=== PATIENT | male | born 1960 | race African-American/Black ===

== ENCOUNTER 2017-01-31 09:17 | Outpatient (CLI) | payer OTHER ==
--- NOTE | 2017-01-31 12:38 | MRI ---
LUMBAR SPINE MRI WITHOUT CONTRAST: HISTORY: Low back pain. The pain extends to the right leg and left knee for several years. COMPARISON: None. TECHNIQUE: A lumbar spine MRI is performed without intravenous Gadolinium administration. Multisequential, mult iplanar imaging is performed. FINDINGS: Heterogeneous marrow signal intensity of the lumbar vertebrae, likely due to senescent change. There are type 2 modic changes, as well as fatty marrow at L4 and L5 and at the superior endplate of S1. There is no significant STIR hyperintensity to suggest edema due to fracture. There is no evidence o f ligamentous injury. Symmetric signal intensity of the psoas muscles. Appropriate signal intensity of the visualized sally d organs. The conus medullaris terminates at the mid T12 level. T12-L1: Adequate disk hydration. No significant central canal stenosis. The foramina are patent. L1-L2: Adequate disk hydration. No significant central canal stenosis. The foramina are patent. L2-L3: Disk desiccation with mild loss of disk space height. Mild ligamentum flavum thickening and left facet hypertrophy is present. Mild central canal stenosis. Mild bilateral neural foraminal sheree rowing. L3-L4: Disk desiccation with mild loss of disk space height. No significant posterior disk abnormal ity. No significant central canal stenosis. Mild to moderate right and moderate left foraminal narr owing. L4-L5: There is a generalized disk bulge. There is severe loss of disk space height. There is disk material in the right and, to a lesser extent, the left subarticular zones. There is mild central c anal stenosis. There appears to be an extruded disk fragment in the right subarticular zone, measuri ng 0.7 cm. Disk material abuts and obscures the traversing right L5 nerve root. Disk material abuts but does not completely obscure the traversing left L5 nerve root. Moderate bilateral foraminal narr owing. L5-S1: Desiccation with severe loss of disk space height. Generalized disk bulge. No high grade ce ntral canal stenosis. Minimal encroachment upon both subarticular zones. Mass effect without ossifi cation of the bilateral traversing S1 nerve roots. Moderate to severe bilateral foraminal narrowing. IMPRESSION: Degenerative disk disease at L4-L5 and at L5-S1. There is a broad-based disk bulge at L4-L5 with dis k material in both subarticular zones, right greater than left. There is evidence of an extruded dis k in the right subarticular zone, which obscures the traversing right L5 nerve root. POS: [facility]
== END 2017-01-31 09:18 | disposition home or self-care (01) ==
LOC: TBSIIMAG 09:17
PROVIDERS: ATTEND Neurological Surgery
DX: M54.5 Low back pain (principal); M51.86 Other intervertebral disc disorders, lumbar region
CPT/HCPCS: 72148

== ENCOUNTER 2017-03-02 07:04 | Outpatient (CLI) | payer OTHER ==
--- NOTE | 2017-03-02 08:02 | ULT ---
ABDOMINAL ULTRASOUND: DATE: 03/02/17. PROVIDED CLINICAL HISTORY: Cirrhosis. FINDINGS: He visualized abdominal aorta, IVC, and pancreas appear normal. The liver demonstrates no mass or in trahepatic biliary ductal dilatation. The common duct is not evaluated. Gallbladder demonstrates no stones, wall thickening, or pericholecystic fluid. The kidneys demonstrate no hydronephrosis or mas s. The spleen is not enlarged and demonstrates no focal abnormality. IMPRESSION: Unremarkable abdominal ultrasound. POS: [facility]
== END 2017-03-02 07:05 | disposition home or self-care (01) ==
LOC: ULT 07:04
PROVIDERS: ATTEND Family Medicine
DX: K74.60 Unspecified cirrhosis of liver (principal)
CPT/HCPCS: 76700

== ENCOUNTER 2018-01-16 09:41 | Outpatient (CLI) | payer OTHER ==
--- NOTE | 2018-01-16 15:53 | RAD ---
DOUBLE CONTRAST BARIUM ESOPHAGRAM: 01/16/18 INDICATION: Dysphagia. FLUOROSCOPIC TIME: 0.7 minutes. TOTAL EXPOSURE: 8.626 Gy*cm2. TECHNIQUE: Thin barium, thick barium and effervescent crystals were utilized for the examination. FINDINGS: The esophagus demonstrate a normal contour, mucosal pattern and motility. No reflux was demonstrated. The 12.5 mm barium tablet passed without difficulty. Shovel Oiler images demonstrate some exuberant bone callus seen at a costovertebral articulation within the right aspect of the mid spine. The lungs are clear. No pleural effusion evident. IMPRESSION: Normal double contrast esophagram. POS: [facility]
== END 2018-01-16 09:42 | disposition home or self-care (01) ==
LOC: RAD 09:41
PROVIDERS: ATTEND Internal Medicine Gastroenterology
DX: R13.14 Dysphagia, pharyngoesophageal phase (principal); B18.2 Chronic viral hepatitis C; K08.109 Complete loss of teeth, unspecified cause, unspecified class
CPT/HCPCS: 74220

== ENCOUNTER 2018-01-18 08:45 | Outpatient (CLI) | payer OTHER ==
--- NOTE | 2018-01-18 09:37 | ULT ---
HEPATIC ULTRASOUND WITH DOPPLER: (Transabdominal, Young scale, color flow, and spectral Doppler) Date: 01/18/18 HISTORY: Hepatitis C. FINDINGS: The liver demonstrates a coarse echotexture without focal mass or intrahepatic ductal dilatation. The spleen measures 8.3 cm in length. No gallstones, gallbladder wall thickening, or pericholecystic flu id is seen. The common duct measures 2.0 mm in diameter. The visualized portions of the pancreas are unremarkable. No free fluid is identified in the upper abdomen. There is normal flow and spectral wav eforms in the hepatic, portal, and splenic vasculature. The main portal vein measures 1.[address] IMPRESSION: No evidence of liver mass. POS: [facility]
== END 2018-01-18 08:46 | disposition home or self-care (01) ==
LOC: BICULT 08:45
PROVIDERS: ATTEND Internal Medicine Gastroenterology
DX: B18.2 Chronic viral hepatitis C (principal); R13.14 Dysphagia, pharyngoesophageal phase; K08.109 Complete loss of teeth, unspecified cause, unspecified class
CPT/HCPCS: 76705

== ENCOUNTER 2018-08-10 08:57 | Outpatient (CLI) | payer OTHER ==
--- NOTE | 2018-08-10 09:24 | SJPRAD ---
PA AND LATERAL CHEST X-RAY: HISTORY: Cough. COMPARISON: 06/03/2016 FINDINGS: The cardiac silhouette and pulmonary vasculature are within normal limits. The lungs remain clear. The right paramediastinal density is again seen and stable compared to a study in 2011, and was shown to be related to osteophytes noted on a prior CT in 2010. There has been no interval change when co mpared to the prior exam. IMPRESSION: No acute cardiopulmonary process. POS: [facility]
== END 2018-08-10 08:58 | disposition home or self-care (01) ==
LOC: MWLC RAD 08:57
PROVIDERS: ATTEND Family Medicine
DX: R05 Cough (principal)

== ENCOUNTER 2019-07-08 22:59 | Observation (INO) | payer OTHER ==
[2019-07-09 00:53] LABS: Hemoglobin 8.7 g/dL (14.0-18.0); Red Blood Cell (RBC) Count 2.28 mill/uL (4.70-6.10); White Blood Cell (WBC) Count 4.8 thou/uL (4.8-10.8)
[2019-07-09 01:05] LABS: ALT (SGPT) 18 U/L (8-55); AST (SGOT) 29 U/L (5-34); Albumin 3.2 g/dL (3.5-5.0); Alkaline Phosphatase 51 U/L (40-110); Anion Gap 14 mmol/L (10-20); BUN (Urea Nitrogen) 12 mg/dL (8.4-25.7); Bilirubin, Total 1.9 mg/dL (0.2-1.2); Calc. Creatinine Clearance 0 mL/min (70-130); Calcium 8.6 mg/dL (7.8-10.44); Carbon Dioxide 26 mmol/L (22-29); Chloride 93 mmol/L (98-107); Estimated GFR-MDRD 65; Globulin 4.4 g/dL (2.4-3.5); Glucose 109 mg/dL (70-105); Protein, Total 7.6 g/dL (6.0-8.3); Sodium 130 mmol/L (136-145)
[2019-07-09 01:08] LABS: Potassium 2.9 mmol/L (3.5-5.1)
[2019-07-09 01:17] LABS: Band 1 % (5-11); Lymphocytes 44 % (21-51); MDiff Complete? YES; Macrocytosis SLIGHT = 6-15 cells (100X) (0-5/hpf); Mean Corpuscular HGB CONC 34.1 g/dL (32.0-36.0); Mean Corpuscular Hemoglobin 38.2 pg (27.0-31.0); Mean Platelet Volume 9.4 fL (7.4-10.4); Monocytes 5 % (0-10); Neutrophil 50 % (42-75); Platelet Count 80 thou/uL (130-400); Platelet Morphology Comment Appears Adequate; RBC Distribution Width 14.8 % (11.5-14.5)
[2019-07-09] MEDS ORDERED: Potassium Chloride 20 MEQ TAB ONE (01:52)
[2019-07-09] MEDS ORDERED: Pot Chloride/Pot Bicarb/Cit Ac 25 mEq Effervescent Tablet ONE (01:55)
--- NOTE | 2019-07-09 02:36 | PDOC.HHP ---
Hospitalist HPI - History of Present Illness Shortness of breath History of Present Illness: Patient with PMH of chronic hepatitis C presents to ED for evaluation of several days history of shortness of breath, lightheadedness/dizziness, unstable gait with frequent falls and right lower extremity edema. At baseline he is a poor historian. He initially mentions symptoms present for only a few days but after further interrogation tells me symptoms have been ongoing for a long time. He denies any fever chills malaise. Tells me that he has a chronic cough that he attributes to his smoking history. He denies any chest pain, palpitations, orthopnea, PND, focal neurological deficits. Tells me that he has issues with bilateral eye drainage for a long time. Initial ED evaluation reveals newly worsened anemia with Hgb 8.7/25, MCV >100, PLTs of 80s. Chemistry shows hyponatremia of 130 and hypokalemia of 2.9. Chest x-ray shows possible air trapping but no other obvious pathology by my own interpretation. VS are currently stable. Hospitalist ROS - Review of Systems Constitutional: reports: weakness. denies: fever Eyes: reports: conjunctivae inflammation ENT: denies: ear pain, ear discharge, nose pain, nose discharge, nose congestion , mouth pain, mouth swelling, throat pain, throat swelling, other Respiratory: reports: cough, dry, shortness of breath, SOB with excertion Cardiovascular: reports: edema, light headedness. denies: chest pain, palpitations, orthopnea, paroxysmal noc. dyspnea Gastrointestinal: denies: nausea, vomiting, abdominal pain, diarrhea, constipation, melena, hematochezia, other Genitourinary: denies: dysuria, frequency, incontinence, hematuria, retention, other Musculoskeletal: reports: leg pain, foot pain Skin: reports: bruising Neurological: reports: weakness Hospitalist History - Past Medical History Pulmonary: reports: no pertinent history Hepatobiliary: reports: Hep A/B/C Musculoskeletal: reports: Osteoarthritis Infectious Disease: reports: Other - Exam General Appearance: NAD, awake alert, ill appearing (chronically ill appearing) Gastrointestinal: soft, non-tender, non-distended Extremities: 1+ LE edema Extremities - other findings: Right lower extremity swellin, echymosis Neurological: cranial nerve grossly intact Hospitalist Results - Labs Result Diagrams: 07/09/19 00:29 07/09/19 00:29 Lab results: WBC 4.8 thou/uL (4.8-10.8) 07/09/19 00:29 Hgb 8.7 g/dL (14.0-18.0) L 07/09/19 00:29 Hct 25.6 % (42.0-52.0) L 07/09/19 00:29 MCV 112.0 fL (78.0-98.0) H 07/09/19 00:29 Plt Count 80 thou/uL (130-400) L 07/09/19 00:29 Band Neuts % (Manual) 1 % (5-11) L 07/09/19 00:29 Sodium 130 mmol/L (136-145) L 07/09/19 00:29 Potassium 2.9 mmol/L (3.5-5.1) L* 07/09/19 00: Chloride 93 mmol/L (98-107) L 07/09/19 00: Carbon Dioxide 26 mmol/L (22-29) 07/09/19 00:29 BUN 12 mg/dL (8.4-25.7) 07/09/19 00:29 Creatinine 1.36 mg/dL (0.7-1.3) H 07/09/19 00:29 Glucose 109 mg/dL (70-105) H 07/09/19 00:29 Calcium 8.6 mg/dL (7.8-10.44) 07/09/19 00:29 Total Bilirubin 1.9 mg/dL (0.2-1.2) H 07/09/19 00:29 AST 29 U/L (5-34) 07/09/19 00: ALT 18 U/L (8-55) 07/09/19 00:29 Alkaline Phosphatase 51 U/L (40-110) 07/09/19 00:29 Troponin I 0.019 ng/mL (< 0.028) 07/09/19 00:29 B-Natriuretic Peptide 10.0 pg/mL (0-100) 07/09/19 00: Serum Total Protein 7.6 g/dL (6.0-8.3) 07/09/19 00:29 Albumin 3.2 g/dL (3.5-5.0) L 07/09/19 00:29 Hospitalist H&P A/P - Plan Plan: Problem List 1. Shortness of breath 2. Pancytopenia 3. History of chronic hepatitis C 4. Generalized weakness 5. Hyponatremia 6. Hypokalemia Assessment and Plan Poor historian presents for evaluation of ongoing shortness of breath mainly on exertion. Refers other symptoms such as generalized weakness, lightheadedness/ dizziness, frequent falls, lower extremity pain and edema. Symptoms likely multifactorial. SOB suspecting possibly multifactorial in setting of some degree of COPD and anemia. Pancytopenia likely related to history of hepatitis C with some degree of cirrhosis. Admit for observation Will hold diuretic and provide gentle IVF Check echocardiogram to assess EF Add albuterol PRN & consider brief trial of steroids pending progression Replace K+ PO and trend progression Recheck Na+ after administration of IVFs Hold stool softner given reported diarrhea Will check anemia panel including iron, TIBC, ferritin, folate and vitamin b12, LDH Stool is negative for occult blood Patient typed and screened in case transfusion becomes necessary Check x-ray right foot given noted ecchymosis & pain PT/OT/CM evaluation for discharge disposition Pending progression can consider GI and hem/onc evaluation
[2019-07-09 03:21] VITALS: BMI 16.8
[2019-07-09] MEDS ORDERED: OxyCODONE IR 30 MG TAB PO PRN (03:58)
[2019-07-09] MEDS ORDERED: Guaifenesin DM 100-10/5 ML UDCUP PO PRN (03:59)
[2019-07-09] MEDS ORDERED: Potassium Chloride 20 MEQ TAB PO SCH (04:45)
[2019-07-09] MEDS ORDERED: Albuterol Sulfate 2.5 mg/3 ml Neb NEB PRN (05:44)
[2019-07-09] MEDS: Ondansetron PF 4 MG/2 ML Vial IVP PRN ×2 (06:01→13:49)
[2019-07-09] MEDS: Sodium Chloride 0.9% 1,000 ML IV SCH ×2 (06:06→16:26)
[2019-07-09 07:33] LABS: Uric Acid 6.9 mg/dL (3.5-7.2)
[2019-07-09 07:58] LABS: Ferritin 398.3 ng/mL (22-322)
--- NOTE | 2019-07-09 07:59 | RAD ---
RADIOGRAPH CHEST 1 VIEW: DATE: 07/09/2019 HISTORY: 58-year-old male with dyspnea FINDINGS: There is hyperinflation of the lungs, consistent with COPD. There is no evidence of airspace density, cardiomegaly, pulmonary edema, or pneumothorax. The lateral costophrenic angles are not effaced. IMPRESSION: 1) No acute pulmonary findings. 2) emphysema.
--- NOTE | 2019-07-09 18:03 | RAD ---
RIGHT FOOT TWO VIEW: 07/09/19 HISTORY: Pain. COMPARISON: None. FINDINGS: No acute displaced fracture or malalignment. Small os peroneum is present. Small erosion on the media l aspect of the great toe proximal phalanx head. Likely an interosseous cyst or lipoma of the proximal phalanx great toe with an old fracture of the m edial cortex. IMPRESSION: Chronic findings. No acute osseous abnormality. POS: [facility]
--- NOTE | 2019-07-09 19:31 | PDOC.EVN ---
Event Note - Event Note Event Note: Seen and examined. Patient profoundly sending cachectic with severe protein calorie malnutrition. I asked the patient if he has been eating, he states that he doesn't have any appetite. Patient has not been explicitly told about COPD or emphysema in the past, emphysematous changes seen on chest x-ray. Categorization status should be addressed. Will ask input from palliative care team.
[2019-07-10 06:38] LABS: #Monocytes 0.2 thou/uL (0.11-0.59); #Neutrophils 2.4 thou/uL (1.40-6.50); %Basophils 0.1 % (0.0-1.0); %Eosinophils 0.6 % (0.0-10.0); %Lymphocytes 42.9 % (21.0-51.0); %Monocytes 4.2 % (0.0-10.0); %Neutrophils 52.1 % (42.0-75.0); Hemoglobin 7.8 g/dL (14.0-18.0); Mean Corpuscular HGB CONC 32.9 g/dL (32.0-36.0); Mean Corpuscular Hemoglobin 38.6 pg (27.0-31.0); Mean Platelet Volume 9.5 fL (7.4-10.4); Platelet Count 70 thou/uL (130-400); RBC Distribution Width 15.5 % (11.5-14.5); Red Blood Cell (RBC) Count 2.02 mill/uL (4.70-6.10); White Blood Cell (WBC) Count 4.7 thou/uL (4.8-10.8)
[2019-07-10 06:56] LABS: ALT (SGPT) 17 U/L (8-55); AST (SGOT) 30 U/L (5-34); Albumin 2.8 g/dL (3.5-5.0); Alkaline Phosphatase 45 U/L (40-110); Anion Gap 10 mmol/L (10-20); BUN (Urea Nitrogen) 12 mg/dL (8.4-25.7); Bilirubin, Total 1.7 mg/dL (0.2-1.2); Calc. Creatinine Clearance 54 mL/min (70-130); Calcium 7.9 mg/dL (7.8-10.44); Carbon Dioxide 26 mmol/L (22-29); Chloride 99 mmol/L (98-107); Estimated GFR-MDRD 69; Globulin 3.7 g/dL (2.4-3.5); Glucose 89 mg/dL (70-105); Potassium 3.8 mmol/L (3.5-5.1); Protein, Total 6.5 g/dL (6.0-8.3); Sodium 131 mmol/L (136-145)
[2019-07-10] MEDS: Sodium Chloride 0.9% 1,000 ML IV SCH ×2 (08:40→22:01)
[2019-07-10 13:37] LABS: Hemoglobin 7.8 g/dL (14.0-18.0)
--- NOTE | 2019-07-10 15:43 | EKG ---
Test Reason : Blood Pressure : / mmHG Vent. Rate : 072 BPM Atrial Rate : 072 BPM P-R Int : 120 ms QRS Dur : 068 ms QT Int : 410 ms P-R-T Axes : 075 061 068 degrees QTc Int : 448 ms Normal sinus rhythm Septal infarct , age undetermined No STEMI Abnormal ECG Confirmed by CORINA GARCIA M.D. ([id number]), research editor CECI MICHELLE ([id number] on 07/10/2019 3:43:01 PM Referred By: Confirmed By:CORINA GARCIA M.D.
--- NOTE | 2019-07-10 21:07 | PDOC.HOSPP ---
- Subjective Encounter Date: 07/10/19 Encounter Time: 21:05 Subjective: Pt seen for followup re: shortness of breath. Feels better today. - Objective Vital Signs & Weight: Vital Signs (12 hours) Temp Pulse Resp BP Pulse Ox 07/10/19 19:58 98.6 F 56 L 18 92/54 L 100 07/10/19 16:25 98.5 F 65 20 94/57 L 93 L 07/10/19 11:56 98.5 F 56 L 18 103/63 98 Weight Admit Weight 138 lb Weight 138 lb 4 oz I&O: 07/09/19 07/10/19 07/11/19 06:59 06:59 06:59 Intake Total 720 Balance 720 Result Diagrams: 07/11/19 09:13 07/11/19 09:13 Additional Labs: Labs and MARs rev iewed by mo Hospitalist ROS - Review of Systems Respiratory: reports: SOB with excertion. denies: cough, shortness of breath, pleuritic pain, wheezing Cardiovascular: denies: chest pain, palpitations, orthopnea, paroxysmal noc. dyspnea, edema, light headedness - Medication Medications: Active Medications Generic Name Dose Route Start Last Admin Trade Name Freq PRN Reason Stop Dose Admin Sodium Chloride 1,000 mls @ 75 mls/hr 07/09/19 04:00 07/10/19 08:40 Normal Saline 0.9% IV Not Given .[id number] [facility] Ondansetron HCl 4 mg 07/09/19 03:59 07/09/19 13:49 Zofran IVP 4 mg Q6H PRN Administration Nausea/Vomiting Oxycodone HCl 30 mg 07/09/19 03:58 07/09/19 14:32 Oxycodone Ir PO 30 mg QID PRN Administration Severe Pain (7-10) - Exam General Appearance: awake alert Eye: anicteric sclera ENT: moist mucosa Neck: supple Heart: RRR Respiratory: no ronchi, wheezes Gastrointestinal: soft, non-tender Extremities: no cyanosis Skin: no lesions Psychiatric: normal affect, normal behavior Hosp A/P - Plan - Assessment 1. COPD exacerbation, acute 2. Hyponatremia, acute 3. Falls, chronic 4. Pancytopenia, likely chronic 5. History of chronic hepatitis C 6. Folic acid deficiency 6. Hypokalemia, resolved - Plan Echo report noted Pt ambulated 250 ft yesterday COPD exacerbation improved Start folate supplementation Pancytopenia likely secondary to hypersplenism Hemoglobin stable today
[2019-07-11] MEDS ORDERED: Folic Acid 1 MG TAB PO SCH (09:00)
[2019-07-11 09:34] LABS: #Lymphocytes 1.9 thou/uL (1.20-3.40); #Monocytes 0.1 thou/uL (0.11-0.59); #Neutrophils 1.9 thou/uL (1.40-6.50); %Basophils 0.7 % (0.0-1.0); %Eosinophils 0.5 % (0.0-10.0); %Lymphocytes 47.9 % (21.0-51.0); %Monocytes 2.8 % (0.0-10.0); %Neutrophils 48.1 % (42.0-75.0); Hemoglobin 7.4 g/dL (14.0-18.0); MDiff Complete? YES; Mean Corpuscular HGB CONC 35.2 g/dL (32.0-36.0); Mean Platelet Volume 8.6 fL (7.4-10.4); Platelet Count 63 thou/uL (130-400); RBC Distribution Width 14.7 % (11.5-14.5); Red Blood Cell (RBC) Count 1.85 mill/uL (4.70-6.10)
[2019-07-11 09:45] LABS: Anion Gap 9 mmol/L (10-20); BUN (Urea Nitrogen) 10 mg/dL (8.4-25.7); Calc. Creatinine Clearance 57 mL/min (70-130); Calcium 7.7 mg/dL (7.8-10.44); Carbon Dioxide 26 mmol/L (22-29); Chloride 103 mmol/L (98-107); Estimated GFR-MDRD 73; Glucose 100 mg/dL (70-105); Potassium 3.5 mmol/L (3.5-5.1); Sodium 134 mmol/L (136-145)
--- NOTE | 2019-07-11 13:55 | PDOC.PALCO ---
Palliative Care Consult - Consult Details Requesting Physician: Dr Sampson/Dr Del Toro Reason for Consult: goals of care, symptom management - Pertinent HPI 58 Year old male who presents to the emergency room for evaluation of shortness of breath. Reported shortness of breath over several days with increase in dizziness, unsteady gait, and falls. No relieving factors. Shortness of breath becomes worse with minimal exertion. Also reported lower extremity edema. Chronic cough. On presentation to the emergency room he denied chest pain, palpitations, syncope. Patient states he drove himself to the emergency room. Lives with a "personal nurse". Admitted for observation for further evaluation and medical management. - Pertinent PMH Hep A, B, C as per patient. Osteoarthritis - Social History Smoking Status: Current every day smoker Smoking: greater than 1 pack/day Alcohol Use: heavy, daily Drug Use History: none Living Situation: with partner - Medications MAR Reviewed: Yes - Allergies Allergies/Adverse Reactions: Allergies Allergy/AdvReac Type Severity Reaction Status Date / Time No Known Allergies Allergy Verified 07/09/19 03:36 - Subjective Finishing lunch on my arrival. States he has right foot pain, radiology was negative for fracture. - ROS Constitutional: alert, weakness ENT: alteration in dentition, other (Denies throat pain, irritation. ) Respiratory: dry cough, shortness of breath with extertion Cardiology: other (Deneis chest pain, palpitations. Positive for intermittant edema to lower extremities) Gastrointestinal: other (Denies nausea, vomiting. Intermittant poor appitite) Genitourinary: other (Denies frequency, urgency, dysuria) Musculoskeletal: foot pain Neurological: dizziness, weakness Psychological: restless - Objective Vital Signs: Vital Signs - Most Recent Temp Pulse Resp BP Pulse Ox 98.5 F 54 L 16 97/60 98 07/11/19 08:03 07/11/19 08:03 07/11/19 08:03 07/11/19 08:03 07/11/19 08:03 Palliative Performance Scale: 60 - Physical Exam Constitutional: cachectic, emaciated, ill appearing HEENT: EOMI, moist MMs, poor dentition Respiratory: no wheezing Cardiovascular: RRR Gastrointestinal: continent, soft, non-tender, positive bowel sounds Genitourinary: continent Musculoskeletal: pulses present, diffuse muscle atrophy Neurology: moves all 4 limbs Skin: cap refill <2 seconds Psychiatric: A&O x 3 Deviation from normal: restless - Problem List (1) Palliative care encounter Code(s): Z51.5 - ENCOUNTER FOR PALLIATIVE CARE Current Visit: Yes Status: Acute (2) Declining functional status Code(s): R53.81 - OTHER MALAISE Current Visit: Yes Status: Acute (3) Dyspnea Code(s): R06.00 - DYSPNEA, UNSPECIFIED Current Visit: Yes Status: Acute (4) COPD (chronic obstructive pulmonary disease) Current Visit: Yes Status: Acute (5) Anemia Code(s): D64.9 - ANEMIA, UNSPECIFIED Current Visit: Yes Status: Acute (6) Malnutrition Code(s): E46 - UNSPECIFIED PROTEIN-CALORIE MALNUTRITION Current Visit: Yes Status: Acute - Plan/Recommendations Plan: Visited with patient at length. States he lives independently with a "personal nurse". No children. In review of history revealed he drinks daily greater than 72 Oz of beer daily. Discussed if he was interested in AA information, states he was sent to AA before by the [facility] and it "did not work". Not interested in smoking cessation or measures to reduce alcohol intake. Discussed intake and importance of calories with benefit and that alcohol has "empty" calories as well as continued negative impact on health. Not a candidate for O2 use in home secondary to desire to continue to smoke. Desires to discharge home "as soon as possible". Communicated with CAROL ANN Gomez and RN caring for patient. [60] minutes spent on this encounter with >50% of the time in counseling and coordination of care. Thank you for this very appropriate consult.
[2019-07-11 14:24] VITALS: BP 103/61; TEMP 98.2
--- NOTE | 2019-07-12 03:50 | DIS ---
DATE OF ADMISSION: 07/09/2019 DATE OF DISCHARGE: 07/11/2019 PRIMARY CARE PROVIDER: Dr. Romaine Santamaria. DISCHARGE DIAGNOSES: 1. Chronic obstructive pulmonary disease exacerbation. 2. Hyponatremia. 3. Hypokalemia. 4. Folic acid deficiency. CONDITION OF PATIENT ON THE DAY OF DISCHARGE: Stable. I assessed, Mr. Black on the day of discharge. He denies any chest pain or shortness of breath. Vital signs are stable. S1 and S2 are heard, regular. Lungs are clear to auscultation bilaterally. HOSPITAL COURSE: Mr. Black is a pleasant 58-year-old gentleman, who was admitted to [facility] on July 09, 2019 for shortness of breath and frequent falls. Please refer to Dr. Leandro Logan' history and physical note dated July 09, 2019 for further details. 2D echocardiogram showed left ventricular ejection fraction of 60% to 65%. He improved with bronchodilators. He was not hypoxic during this hospitalization. He was hyponatremic at the time of admission, sodium improved to 134 by the day of discharge. He also had hypokalemia at the time of admission, which resolved with potassium supplementation. He was found to have folate level of less than 1.60. He has been started on folic acid supplementation. He is advised to have his hemoglobin rechecked through his primary care provider's office. He did not have any other changes made to his pre-admission home medications. He was also seen by Palliative Care Service prior to discharge. Rehab Services recommended inpatient rehabilitation. However, he did not wish to go to inpatient rehab. Physical therapist recommended discharge to home with walker. The patient states that he uses a walker at home. Post-acute care followup: With primary care provider in 3 days. Diet: Low-sodium diet. Activity: As tolerated. Many thanks for allowing me to participate in your patient's care. Please feel free to contact me with any questions or concerns. DISCHARGE DESTINATION: Home. Job ID: [id number]
== END 2019-07-11 13:59 | disposition home or self-care (01) ==
LOC: ERS 22:59 → T4-A 07-09 02:16
PROVIDERS: ADMIT Internal Medicine; ATTEND Internal Medicine
DX: J44.1 Chronic obstructive pulmonary disease with (acute) exacerbation (principal); E87.1 Hypo-osmolality and hyponatremia; E87.6 Hypokalemia; E53.8 Deficiency of other specified B group vitamins; D61.818 Other pancytopenia; B18.2 Chronic viral hepatitis C; M19.90 Unspecified osteoarthritis, unspecified site; F17.210 Nicotine dependence, cigarettes, uncomplicated; R53.81 Other malaise; M79.671 Pain in right foot; E43 Unspecified severe protein-calorie malnutrition; Z68.1 Body mass index [BMI] 19.9 or less, adult; Z51.5 Encounter for palliative care; Z79.899 Other long term (current) drug therapy
CPT/HCPCS: 36415; 71045; 80048; 80053; 82274; 82607; 82728; 82746; 83540; 83550; 83615; 83880; 84484; 84550; 85025; 86850; 86900; 86901; 93005; 93306; 96361; 96374; 96376; G0378; J2405

== ENCOUNTER 2020-12-25 13:13 | Outpatient (CLI) | payer OTHER | END 2020-12-25 13:14 | disposition home or self-care (01) | LOC: BICRAD 13:13 | PROVIDERS: ATTEND Family Medicine | DX: R05.9 Cough, unspecified (principal); E53.8 Deficiency of other specified B group vitamins; R74.8 Abnormal levels of other serum enzymes | CPT/HCPCS: 36415; 71046; 80053; 82746; 85025 ==

== ENCOUNTER 2021-03-09 13:18 | Emergency (ER) | payer OTHER | END 2021-03-09 16:29 | disposition home or self-care (01) | LOC: ERS 13:18 | DX: M25.461 Effusion, right knee (principal) ==

== ENCOUNTER 2023-03-09 21:04 | Inpatient (IN) | payer OTHER ==
[~2023-03-09 21:04] MED LIST: Iopamidol-370 76% 500 ML MDV (1 ML CHARGE) ONE; Lidocaine 1% PF 5 ML VIAL ONE; NEOSTIGMINE 3 MG/3 ML SYR 3 MG/3 ML SYRINGE ONE
[2023-03-09] MEDS ORDERED: Ketorolac Tromethamine 30 MG (1 mL) VIAL ONE (21:50)
[2023-03-09] MEDS ORDERED: Morphine 4 MG/ML VIAL ONE (21:50)
[2023-03-09 21:52] LABS: #Monocytes 0.9 thou/uL (0.11-0.59); #Neutrophils 10.3 thou/uL (1.40-6.50); %Basophils 0.1 % (0.0-1.0); %Eosinophils 0.1 % (0.0-10.0); %Lymphocytes 18.1 % (21.0-51.0); %Monocytes 6.2 % (0.0-10.0); %Neutrophils 74.1 % (42.0-75.0); Hematocrit 30.6 % (42.0-52.0); Hemoglobin 11.2 g/dL (14.0-18.0); Mean Corpuscular HGB CONC 36.6 g/dL (32.0-36.0); Mean Corpuscular Hemoglobin 34.9 pg (27.0-31.0); Mean Corpuscular Volume 95.3 fl (78.0-98.0); Mean Platelet Volume 9.8 fL (7.4-10.4); Platelet Count 330 10x3/uL (130-400); RBC Distribution Width 14.9 % (11.5-14.5); Red Blood Cell (RBC) Count 3.21 mill/uL (4.70-6.10); White Blood Cell (WBC) Count 13.9 10x3/uL (4.8-10.8)
[2023-03-09 22:05] LABS: INR-International Normal Ratio 1.4; Prothrombin Time 17.3 sec (12.0-14.7)
[2023-03-09 22:06] LABS: PTT 43.2 sec (22.9-36.1)
[2023-03-09 22:32] LABS: Critical Call Chem-Lactate NUR.KD14@2231
[2023-03-09 22:34] LABS: ALT (SGPT) 22 U/L (8-55); AST (SGOT) 70 U/L (5-34); Albumin 2.2 g/dL (3.4-4.8); Alkaline Phosphatase 110 U/L (40-110); Anion Gap 18 mmol/L (10-20); BUN (Urea Nitrogen) 6 mg/dL (8.4-25.7); Bilirubin, Total 1.1 mg/dL (0.2-1.2); CK (CPK) 60 U/L (30-200); Calc. Creatinine Clearance 0 mL/min (70-130); Calcium 8.3 mg/dL (7.8-10.44); Carbon Dioxide 29 mmol/L (23-31); Chloride 86 mmol/L (98-107); Estimated GFR 95; Globulin 5.8 g/dL (2.4-3.5); Glucose 124 mg/dL (80-115); Sodium 131 mmol/L (136-145)
[2023-03-09 22:35] LABS: Acetaminophen Less than 10 mcg/mL (10.0-30.0); Alcohol Less than 10.0 mg/dL (Less than 10); Salicylate Less than 8.0 mg/dL (15.0-30.0)
[2023-03-09] MEDS ORDERED: Piperacillin/Tazobactam 4.5 GM VIAL ONE (22:36)
[2023-03-09] MEDS ORDERED: Sodium Chloride 0.9% 100 ML ONE (22:37)
[2023-03-09 22:38] LABS: Potassium 2.3 mmol/L (3.5-5.1)
[2023-03-09] MEDS ORDERED: Potassium Chloride 20 MEQ TAB ONE (22:47)
[2023-03-09] MEDS ORDERED: Potassium Chloride 20 MEQ (100 mL) BAG ONE ×2 (22:47→23:28)
[2023-03-09] MEDS ORDERED: Electrolyte Replacement Protocol 1 EACH FS PRN (22:48)
[2023-03-09] MEDS ORDERED: Lorazepam 2 MG/ML VIAL IM PRN (23:05)
[2023-03-09] MEDS ORDERED: Lorazepam 1 MG TAB PO PRN (23:05)
[2023-03-09] MEDS ORDERED: Ondansetron ODT 4 MG TAB PO PRN ×2 (23:05→23:06)
[2023-03-09] MEDS ORDERED: Acetaminophen 325 MG TAB PO PRN (23:06)
[2023-03-09] MEDS ORDERED: Calcium Carbonate 500 MG ChewTAB PO PRN (23:06)
[2023-03-10] MEDS ORDERED: Vancomycin 1 GM/200 ML (FROZEN) BAG ONE (00:01)
[2023-03-10 01:39] LABS: Lactic Acid 2.4 mmol/L (0.5-2.2)
[2023-03-10 01:43] LABS: Phosphorus 2.3 mg/dL (2.3-4.7)
[2023-03-10 01:59] VITALS: BMI 17.6
[2023-03-10] MEDS ORDERED: Morphine 2 MG/ML VIAL SLOW IVP SCH (02:00)
[2023-03-10] MEDS: Dextrose 5%-Lactated Ringers 1,000 ML IV SCH ×2 (02:02→08:33)
[2023-03-10] MEDS: Thiamine HCl 200 MG/2 ML VIAL SLOW IVP SCH (02:02)
[2023-03-10] MEDS: Piperacillin/Tazobactam 3.375 GM in Sodium Chloride 0.9% 100 ML IVPB SCH ×3 (02:02→18:20)
[2023-03-10] MEDS ORDERED: Piperacillin/Tazobactam 4.5 GM in Sodium Chloride 0.9% 100 ML IVPB SCH (06:00)
[2023-03-10 06:27] LABS: #Neutrophils 11.1 thou/uL (1.40-6.50); %Basophils 0.1 % (0.0-1.0); %Eosinophils 0.1 % (0.0-10.0); %Lymphocytes 17.5 % (21.0-51.0); %Monocytes 6.4 % (0.0-10.0); %Neutrophils 74.4 % (42.0-75.0); Hematocrit 24.3 % (42.0-52.0); Hemoglobin 8.9 g/dL (14.0-18.0); Mean Corpuscular HGB CONC 36.6 g/dL (32.0-36.0); Mean Corpuscular Hemoglobin 35.3 pg (27.0-31.0); Mean Corpuscular Volume 96.4 fl (78.0-98.0); Mean Platelet Volume 9.8 fL (7.4-10.4); Platelet Count 283 10x3/uL (130-400); RBC Distribution Width 15.4 % (11.5-14.5); Red Blood Cell (RBC) Count 2.52 mill/uL (4.70-6.10); White Blood Cell (WBC) Count 14.9 10x3/uL (4.8-10.8)
[2023-03-10 06:49] LABS: ALT (SGPT) 18 U/L (8-55); AST (SGOT) 56 U/L (5-34); Albumin 1.7 g/dL (3.4-4.8); Alkaline Phosphatase 92 U/L (40-110); Anion Gap 9 mmol/L (10-20); BUN (Urea Nitrogen) 6 mg/dL (8.4-25.7); Bilirubin, Total 1.1 mg/dL (0.2-1.2); Calc. Creatinine Clearance 76 mL/min (70-130); Calcium 7.1 mg/dL (7.8-10.44); Carbon Dioxide 35 mmol/L (23-31); Chloride 91 mmol/L (98-107); Estimated GFR 94; Globulin 4.5 g/dL (2.4-3.5); Glucose 110 mg/dL (80-115); Protein, Total 6.2 g/dL (5.8-8.1); Sodium 133 mmol/L (136-145)
[2023-03-10 06:52] LABS: Critical Call Chemistry MANOR.JRR@0652; Potassium 2.2 mmol/L (3.5-5.1)
[2023-03-10] MEDS ORDERED: Magnesium 2 GM/50 ML(in water) 2 GM in Premix 1 BAG IVPB SCH (08:00)
[2023-03-10] MEDS: Folic Acid 1 MG TAB PO SCH (08:27)
[2023-03-10] MEDS: Famotidine 20 MG TAB PO SCH ×2 (08:27→20:55)
[2023-03-10] MEDS: Multivit, Therapeutic 1 TAB PO SCH (08:27)
[2023-03-10] MEDS: Potassium Chloride 20 MEQ in Premix 1 BAG IVPB SCH ×4 (08:34→18:39)
[2023-03-10] MEDS ORDERED: Vancomycin (BATCH) 1.5 GM in Premix 1 BAG IVPB SCH (09:00)
[2023-03-10] MEDS ORDERED: Piperacillin/Tazobactam 3.375 GM VIAL ONE (09:53)
[2023-03-10] MEDS ORDERED: Sodium Chloride 0.9% 100 ML ONE (09:53)
[2023-03-10] MEDS ORDERED: PROPOFOL 20 ML ONE (10:02)
[2023-03-10] MEDS ORDERED: fentaNYL PF 100 MCG/2 ML SYRINGE ONE (10:03)
[2023-03-10 10:29] LABS: Critical Call Chemistry NUR.KL1@1028; Potassium 2.6 mmol/L (3.5-5.1)
[2023-03-10] MEDS ORDERED: Ondansetron PF 4 MG/2 ML Vial ONE (10:47)
[2023-03-10] MEDS ORDERED: Dexamethasone 20 MG/5 ML VIAL ONE (10:47)
[2023-03-10] MEDS ORDERED: Glycopyrrolate 0.2 MG/ML 5 ML SYRINGE ONE ×2 (10:47→10:53)
[2023-03-10] MEDS ORDERED: NEOSTIGMINE 3 MG/3 ML SYR 3 MG/3 ML SYRINGE ONE ×2 (10:47→10:53)
[2023-03-10] MEDS ORDERED: Promethazine HCl 25 MG/ML VIAL IM PRN (11:16)
[2023-03-10] MEDS ORDERED: Ipratropium/Albuterol 3 ML NEB NEB PRN (11:16)
[2023-03-10] MEDS ORDERED: Ondansetron PF 4 MG/2 ML Vial IVP PRN (11:16)
[2023-03-10] MEDS ORDERED: Electrolyte Replacement Protocol FS PRN (11:45)
[2023-03-10 13:00] LABS: Glucose 103 mg/dL (80-115)
[2023-03-10] MEDS: Vancomycin 1 GM in Premix 1 BAG IVPB SCH (14:15)
[2023-03-10] MEDS: Morphine 4 MG/ML VIAL SLOW IVP PRN ×2 (14:17→20:55)
[2023-03-10 18:06] LABS: Glucose 138 mg/dL (80-115)
[2023-03-10 21:01] LABS: Potassium 4.4 mmol/L (3.5-5.1)
[2023-03-10 22:07] LABS: Glucose 284 mg/dL (80-115)
[2023-03-10] MEDS: Insulin Regular 300 UNITS/3 ML VIAL SC PRN (22:26)
[2023-03-10] MEDS ORDERED: Lorazepam 1 MG TAB PO PRN (23:06)
[2023-03-11] MEDS: Thiamine HCl 200 MG/2 ML VIAL SLOW IVP SCH (00:38)
[2023-03-11] MEDS: Piperacillin/Tazobactam 3.375 GM in Sodium Chloride 0.9% 100 ML IVPB SCH ×3 (01:40→17:15)
[2023-03-11] MEDS: Vancomycin 1 GM in Premix 1 BAG IVPB SCH ×2 (01:40→14:02)
[2023-03-11] MEDS: Folic Acid 1 MG TAB PO SCH (09:08)
[2023-03-11] MEDS: Famotidine 20 MG TAB PO SCH ×2 (09:08→21:00)
[2023-03-11] MEDS: Multivit, Therapeutic 1 TAB PO SCH (09:08)
[2023-03-11] MEDS: Insulin Regular 300 UNITS/3 ML VIAL SC PRN ×2 (09:14→14:02)
[2023-03-11] MEDS: Morphine 4 MG/ML VIAL SLOW IVP PRN ×2 (09:31→17:17)
[2023-03-11 10:53] LABS: #Monocytes 0.5 thou/uL (0.11-0.59); #Neutrophils 11.6 thou/uL (1.40-6.50); %Basophils 0.1 % (0.0-1.0); %Lymphocytes 8.9 % (21.0-51.0); %Monocytes 3.4 % (0.0-10.0); %Neutrophils 86.3 % (42.0-75.0); Hematocrit 27.2 % (42.0-52.0); Hemoglobin 9.4 g/dL (14.0-18.0); Mean Corpuscular HGB CONC 34.6 g/dL (32.0-36.0); Mean Corpuscular Hemoglobin 34.7 pg (27.0-31.0); Mean Corpuscular Volume 100.4 fl (78.0-98.0); Mean Platelet Volume 9.9 fL (7.4-10.4); Platelet Count 310 10x3/uL (130-400); Red Blood Cell (RBC) Count 2.71 mill/uL (4.70-6.10); White Blood Cell (WBC) Count 13.5 10x3/uL (4.8-10.8)
[2023-03-11 11:22] LABS: Anion Gap 12 mmol/L (10-20); BUN (Urea Nitrogen) 8 mg/dL (8.4-25.7); Calc. Creatinine Clearance 80 mL/min (70-130); Calcium 7.9 mg/dL (7.8-10.44); Carbon Dioxide 31 mmol/L (23-31); Chloride 96 mmol/L (98-107); Estimated GFR 96; Glucose 174 mg/dL (80-115); Magnesium 1.7 mg/dL (1.6-2.6); Potassium 3.7 mmol/L (3.5-5.1); Sodium 135 mmol/L (136-145)
[2023-03-11] MEDS: HYDROcodone/Acetaminophen 5/325 mg Tablet PO PRN ×3 (11:28→20:58)
[2023-03-11] MEDS ORDERED: Magnesium 2 GM/50 ML(in water) 2 GM in Premix 1 BAG IVPB SCH (13:30)
[2023-03-11 13:40] LABS: Glucose 163 mg/dL (80-115)
[2023-03-11 17:28] LABS: Glucose 139 mg/dL (80-115)
[2023-03-11] MEDS: Gabapentin 100 MG CAP PO SCH (20:59)
[2023-03-11 21:19] LABS: Glucose 164 mg/dL (80-115)
[2023-03-11] MEDS ORDERED: Lorazepam 1 MG TAB PO PRN (23:06)
[2023-03-12] MEDS: Thiamine HCl 200 MG/2 ML VIAL SLOW IVP SCH (00:42)
[2023-03-12] MEDS: Piperacillin/Tazobactam 3.375 GM in Sodium Chloride 0.9% 100 ML IVPB SCH ×3 (01:04→18:07)
[2023-03-12] MEDS: Vancomycin 1 GM in Premix 1 BAG IVPB SCH ×2 (01:04→13:24)
[2023-03-12 07:45] LABS: #Monocytes 0.7 thou/uL (0.11-0.59); #Neutrophils 8.8 thou/uL (1.40-6.50); %Basophils 0.1 % (0.0-1.0); %Lymphocytes 20.8 % (21.0-51.0); %Monocytes 5.6 % (0.0-10.0); %Neutrophils 71.8 % (42.0-75.0); Hematocrit 26.3 % (42.0-52.0); Hemoglobin 8.9 g/dL (14.0-18.0); Mean Corpuscular HGB CONC 33.8 g/dL (32.0-36.0); Mean Corpuscular Hemoglobin 34.6 pg (27.0-31.0); Mean Corpuscular Volume 102.3 fl (78.0-98.0); Mean Platelet Volume 9.7 fL (7.4-10.4); Platelet Count 337 10x3/uL (130-400); RBC Distribution Width 15.8 % (11.5-14.5); Red Blood Cell (RBC) Count 2.57 mill/uL (4.70-6.10); White Blood Cell (WBC) Count 12.2 10x3/uL (4.8-10.8)
[2023-03-12 07:57] LABS: Glucose 136 mg/dL (80-115)
[2023-03-12] MEDS: Folic Acid 1 MG TAB PO SCH (09:23)
[2023-03-12] MEDS: Gabapentin 100 MG CAP PO SCH ×3 (09:23→20:25)
[2023-03-12] MEDS: Multivit, Therapeutic 1 TAB PO SCH (09:23)
[2023-03-12] MEDS: Famotidine 20 MG TAB PO SCH ×2 (09:23→20:26)
[2023-03-12] MEDS: HYDROcodone/Acetaminophen 5/325 mg Tablet PO PRN ×2 (09:30→23:44)
[2023-03-12] MEDS ORDERED: Gabapentin 100 MG CAP PO SCH (12:45)
[2023-03-12 13:08] LABS: Glucose 120 mg/dL (80-115)
[2023-03-12 18:14] LABS: Glucose 115 mg/dL (80-115)
[2023-03-12] MEDS: Thiamine 100 MG TAB PO SCH (20:25)
[2023-03-12] MEDS: CeleCOXIB 100 MG CAP PO SCH (20:25)
[2023-03-12] MEDS: Morphine 4 MG/ML VIAL SLOW IVP PRN (20:26)
[2023-03-12] MEDS: Senokot S 8.6-50 MG TAB PO SCH (20:26)
[2023-03-12 21:20] LABS: Glucose 124 mg/dL (80-115)
[2023-03-12] MEDS ORDERED: Lorazepam 0.5 MG TAB PO PRN (23:06)
[2023-03-13] MEDS: Vancomycin 1 GM in Premix 1 BAG IVPB SCH ×2 (01:04→15:02)
[2023-03-13] MEDS: Piperacillin/Tazobactam 3.375 GM in Sodium Chloride 0.9% 100 ML IVPB SCH ×3 (02:30→18:43)
[2023-03-13] MEDS: Morphine 4 MG/ML VIAL SLOW IVP PRN ×2 (02:31→11:25)
[2023-03-13 07:03] LABS: #Monocytes 1.1 thou/uL (0.11-0.59); #Neutrophils 6.4 thou/uL (1.40-6.50); %Basophils 0.2 % (0.0-1.0); %Eosinophils 0.2 % (0.0-10.0); %Lymphocytes 28.8 % (21.0-51.0); %Monocytes 9.2 % (0.0-10.0); %Neutrophils 55.2 % (42.0-75.0); Hematocrit 26.8 % (42.0-52.0); Hemoglobin 9.2 g/dL (14.0-18.0); Manual Diff?? YES; Mean Corpuscular HGB CONC 34.3 g/dL (32.0-36.0); Mean Corpuscular Hemoglobin 35.1 pg (27.0-31.0); Mean Corpuscular Volume 102.3 fl (78.0-98.0); Platelet Count 351 10x3/uL (130-400); Red Blood Cell (RBC) Count 2.62 mill/uL (4.70-6.10); White Blood Cell (WBC) Count 11.6 10x3/uL (4.8-10.8)
[2023-03-13 07:30] LABS: Anion Gap 8 mmol/L (10-20); BUN (Urea Nitrogen) 20 mg/dL (8.4-25.7); Calc. Creatinine Clearance 78 mL/min (70-130); Calcium 8.1 mg/dL (7.8-10.44); Carbon Dioxide 31 mmol/L (23-31); Chloride 99 mmol/L (98-107); Estimated GFR 96; Glucose 100 mg/dL (80-115); Potassium 4.1 mmol/L (3.5-5.1); Sodium 134 mmol/L (136-145)
[2023-03-13 08:01] LABS: CellaVision Operator ID LAB.KW3; Large Platelets 6.9 % (0-5); Lymphocytes 21 % (21-51); Monocytes 9 % (0-10); Neutrophil 66 % (42-75); Nucleated RBC (Manual Ct) 3 % (0); Platelet Adequacy Comment Platelets Normal; Polychromasia SLIGHT = 2-3 cells HPF (0-2); Reactive Lymphocytes 4 % (0-10); Schistocytes SLIGHT = 2-5 cells HPF (0-1); Target Cells MODERATE= 6-15 cells HPF (0-1); Total Cell Count 101
[2023-03-13] MEDS: Folic Acid 1 MG TAB PO SCH (08:45)
[2023-03-13] MEDS: CeleCOXIB 100 MG CAP PO SCH ×2 (08:45→21:05)
[2023-03-13] MEDS: Senokot S 8.6-50 MG TAB PO SCH ×2 (08:47→21:05)
[2023-03-13] MEDS: Famotidine 20 MG TAB PO SCH ×2 (08:47→21:05)
[2023-03-13] MEDS: Multivit, Therapeutic 1 TAB PO SCH (08:47)
[2023-03-13] MEDS: Gabapentin 100 MG CAP PO SCH (08:48)
[2023-03-13] MEDS ORDERED: FLU VACC QS2023-24(6MOS UP)/PF 60 MCG/0.5 ML SYRINGE IM ONE (09:00)
[2023-03-13] MEDS ORDERED: Vancomycin 1 GM in Premix 1 BAG IVPB SCH (10:45)
[2023-03-13 11:52] LABS: Glucose 114 mg/dL (80-115)
[2023-03-13] MEDS ORDERED: Mineral Oil ENEMA PR SCH (13:15)
[2023-03-13] MEDS: Methocarbamol 500 MG TAB PO SCH ×2 (15:03→21:06)
[2023-03-13] MEDS: Gabapentin 300 MG CAP PO SCH ×2 (15:03→21:06)
[2023-03-13] MEDS: Polyethylene Glycol 3350 17 GM Packet PO SCH ×2 (15:06→21:07)
[2023-03-13] MEDS: Thiamine 100 MG TAB PO SCH (21:05)
[2023-03-13 21:33] LABS: Glucose 109 mg/dL (80-115)
[2023-03-14] MEDS: Morphine 4 MG/ML VIAL SLOW IVP PRN ×4 (00:02→23:54)
[2023-03-14] MEDS: Vancomycin 1 GM in Premix 1 BAG IVPB SCH (02:40)
[2023-03-14] MEDS: Piperacillin/Tazobactam 3.375 GM in Sodium Chloride 0.9% 100 ML IVPB SCH ×3 (02:40→17:45)
[2023-03-14 04:14] LABS: #Eosinphils 0.1 thou/uL (0.0-0.7); #Neutrophils 4.4 thou/uL (1.40-6.50); %Basophils 0.3 % (0.0-1.0); %Eosinophils 0.7 % (0.0-10.0); %Lymphocytes 32.6 % (21.0-51.0); %Monocytes 11.2 % (0.0-10.0); %Neutrophils 50.3 % (42.0-75.0); Hematocrit 28.2 % (42.0-52.0); Hemoglobin 9.4 g/dL (14.0-18.0); Mean Corpuscular HGB CONC 33.3 g/dL (32.0-36.0); Mean Corpuscular Hemoglobin 34.3 pg (27.0-31.0); Mean Corpuscular Volume 102.9 fl (78.0-98.0); Mean Platelet Volume 8.9 fL (7.4-10.4); Platelet Count 380 10x3/uL (130-400); RBC Distribution Width 16.7 % (11.5-14.5); Red Blood Cell (RBC) Count 2.74 mill/uL (4.70-6.10); White Blood Cell (WBC) Count 8.7 10x3/uL (4.8-10.8)
[2023-03-14 05:02] LABS: Anion Gap 11 mmol/L (10-20); BUN (Urea Nitrogen) 23 mg/dL (8.4-25.7); Calc. Creatinine Clearance 64 mL/min (70-130); Calcium 8.4 mg/dL (7.8-10.44); Carbon Dioxide 29 mmol/L (23-31); Chloride 101 mmol/L (98-107); Estimated GFR 77; Glucose 113 mg/dL (80-115); Potassium 4.6 mmol/L (3.5-5.1); Sodium 136 mmol/L (136-145)
[2023-03-14] MEDS ORDERED: Lidocaine 2% PF 5 ML VIAL ONE (07:00)
[2023-03-14] MEDS ORDERED: PROPOFOL 20 ML ONE (07:00)
[2023-03-14] MEDS ORDERED: Ondansetron PF 4 MG/2 ML Vial ONE (07:31)
[2023-03-14] MEDS ORDERED: Dexamethasone 20 MG/5 ML VIAL ONE (07:31)
[2023-03-14] MEDS ORDERED: fentaNYL 50 mcg/mL 1 mL Vial ONE ×3 (07:31→08:50)
[2023-03-14 10:30] LABS: Glucose 115 mg/dL (80-115)
[2023-03-14] MEDS: Polyethylene Glycol 3350 17 GM Packet PO SCH ×3 (10:55→21:43)
[2023-03-14] MEDS: Gabapentin 300 MG CAP PO SCH ×3 (10:56→21:43)
[2023-03-14] MEDS: Methocarbamol 500 MG TAB PO SCH ×3 (10:56→21:44)
[2023-03-14] MEDS: Multivit, Therapeutic 1 TAB PO SCH (10:56)
[2023-03-14] MEDS: Famotidine 20 MG TAB PO SCH ×2 (10:57→21:44)
[2023-03-14] MEDS: CeleCOXIB 100 MG CAP PO SCH ×2 (10:57→21:43)
[2023-03-14] MEDS: Folic Acid 1 MG TAB PO SCH (10:57)
[2023-03-14] MEDS: Senokot S 8.6-50 MG TAB PO SCH ×2 (10:57→21:44)
[2023-03-14] MEDS ORDERED: HYDROmorphone 1 MG/ML SYRINGE SLOW IVP SCH (11:30)
[2023-03-14] MEDS ORDERED: Vancomycin 1 GM in Premix 1 BAG IVPB SCH (12:00)
[2023-03-14] MEDS ORDERED: HYDROmorphone 0.5 MG/0.5 ML SYRINGE SLOW IVP SCH (12:00)
[2023-03-14 12:35] LABS: Vancomycin, Trough 20.9 ug/mL
[2023-03-14] MEDS: Vancomycin HCl 750 MG in Sodium Chloride 0.9% 250 ML 250 ML IVPB SCH (16:33)
[2023-03-14] MEDS: Insulin Regular 300 UNITS/3 ML VIAL SC PRN (17:49)
[2023-03-14 18:04] LABS: Glucose 191 mg/dL (80-115)
[2023-03-14 21:15] LABS: Glucose 154 mg/dL (80-115)
[2023-03-14] MEDS: Thiamine 100 MG TAB PO SCH (21:43)
[2023-03-14] MEDS: HYDROcodone/Acetaminophen 5/325 mg Tablet PO PRN (21:45)
[2023-03-15] MEDS: Piperacillin/Tazobactam 3.375 GM in Sodium Chloride 0.9% 100 ML IVPB SCH ×2 (01:11→09:40)
[2023-03-15] MEDS: Vancomycin HCl 750 MG in Sodium Chloride 0.9% 250 ML 250 ML IVPB SCH (01:12)
[2023-03-15] MEDS: HYDROcodone/Acetaminophen 5/325 mg Tablet PO PRN ×3 (01:15→23:46)
[2023-03-15 04:44] LABS: #Monocytes 1.4 thou/uL (0.11-0.59); %Basophils 0.1 % (0.0-1.0); %Lymphocytes 15.9 % (21.0-51.0); %Monocytes 10.1 % (0.0-10.0); %Neutrophils 72.8 % (42.0-75.0); Hematocrit 26.5 % (42.0-52.0); Hemoglobin 8.9 g/dL (14.0-18.0); Mean Corpuscular HGB CONC 33.6 g/dL (32.0-36.0); Mean Corpuscular Hemoglobin 34.8 pg (27.0-31.0); Mean Corpuscular Volume 103.5 fl (78.0-98.0); Mean Platelet Volume 9.2 fL (7.4-10.4); Platelet Count 359 10x3/uL (130-400); Red Blood Cell (RBC) Count 2.56 mill/uL (4.70-6.10); White Blood Cell (WBC) Count 13.7 10x3/uL (4.8-10.8)
[2023-03-15 05:14] LABS: Anion Gap 12 mmol/L (10-20); BUN (Urea Nitrogen) 27 mg/dL (8.4-25.7); Calc. Creatinine Clearance 73 mL/min (70-130); Calcium 8.6 mg/dL (7.8-10.44); Carbon Dioxide 28 mmol/L (23-31); Chloride 102 mmol/L (98-107); Estimated GFR 89; Glucose 132 mg/dL (80-115); Potassium 4.7 mmol/L (3.5-5.1); Sodium 137 mmol/L (136-145)
[2023-03-15 07:45] LABS: Glucose 143 mg/dL (80-115)
[2023-03-15] MEDS: CeleCOXIB 100 MG CAP PO SCH ×2 (09:32→21:01)
[2023-03-15] MEDS: Senokot S 8.6-50 MG TAB PO SCH ×2 (09:33→21:03)
[2023-03-15] MEDS: Methocarbamol 500 MG TAB PO SCH ×3 (09:34→21:03)
[2023-03-15] MEDS: Gabapentin 300 MG CAP PO SCH ×2 (09:34→14:43)
[2023-03-15] MEDS: Multivit, Therapeutic 1 TAB PO SCH (09:34)
[2023-03-15] MEDS: Famotidine 20 MG TAB PO SCH ×2 (09:34→21:03)
[2023-03-15] MEDS: Polyethylene Glycol 3350 17 GM Packet PO SCH (09:38)
[2023-03-15] MEDS: Folic Acid 1 MG TAB PO SCH (09:38)
[2023-03-15 12:27] LABS: Glucose 104 mg/dL (80-115)
[2023-03-15] MEDS: Morphine 4 MG/ML VIAL SLOW IVP PRN ×2 (14:48→19:10)
[2023-03-15] MEDS ORDERED: Lactulose 20 GM (30 mL) UDCUP PO SCH (15:15)
[2023-03-15] MEDS ORDERED: Mineral Oil ENEMA PR SCH (15:15)
[2023-03-15] MEDS ORDERED: Aspirin 81 mg Enteric Coated Tablet PO SCH (15:30)
[2023-03-15 19:34] LABS: Glucose 135 mg/dL (80-115)
[2023-03-15] MEDS: Acetaminophen 500 MG TAB PO SCH (20:59)
[2023-03-15] MEDS: Amoxicillin/Potassium Clav 500 MG TAB PO SCH (21:01)
[2023-03-15] MEDS: Apixaban 5 MG TAB PO SCH (21:01)
[2023-03-15] MEDS: Gabapentin 400 MG CAP PO SCH (21:03)
[2023-03-15] MEDS: Thiamine 100 MG TAB PO SCH (21:04)
[2023-03-15] MEDS: Lactulose 20 GM (30 mL) UDCUP PO SCH (21:05)
[2023-03-15 22:02] LABS: Glucose 121 mg/dL (80-115)
[2023-03-16 06:23] LABS: #Monocytes 1.9 thou/uL (0.11-0.59); #Neutrophils 7.7 thou/uL (1.40-6.50); %Basophils 0.2 % (0.0-1.0); %Eosinophils 0.2 % (0.0-10.0); %Monocytes 14.2 % (0.0-10.0); Hematocrit 28.1 % (42.0-52.0); Hemoglobin 9.4 g/dL (14.0-18.0); Mean Corpuscular HGB CONC 33.5 g/dL (32.0-36.0); Mean Corpuscular Hemoglobin 35.2 pg (27.0-31.0); Mean Corpuscular Volume 105.2 fl (78.0-98.0); Mean Platelet Volume 9.2 fL (7.4-10.4); Platelet Count 369 10x3/uL (130-400); RBC Distribution Width 17.2 % (11.5-14.5); Red Blood Cell (RBC) Count 2.67 mill/uL (4.70-6.10); White Blood Cell (WBC) Count 13.1 10x3/uL (4.8-10.8)
[2023-03-16 06:46] LABS: Anion Gap 12 mmol/L (10-20); BUN (Urea Nitrogen) 31 mg/dL (8.4-25.7); Calc. Creatinine Clearance 72 mL/min (70-130); Carbon Dioxide 28 mmol/L (23-31); Chloride 101 mmol/L (98-107); Estimated GFR 88; Glucose 102 mg/dL (80-115); Potassium 4.2 mmol/L (3.5-5.1); Sodium 137 mmol/L (136-145)
[2023-03-16] MEDS: Folic Acid 1 MG TAB PO SCH (08:44)
[2023-03-16] MEDS: CeleCOXIB 100 MG CAP PO SCH ×2 (08:44→20:05)
[2023-03-16] MEDS: Gabapentin 400 MG CAP PO SCH ×3 (08:45→20:05)
[2023-03-16] MEDS: Apixaban 5 MG TAB PO SCH ×2 (08:45→20:05)
[2023-03-16] MEDS: Senokot S 8.6-50 MG TAB PO SCH ×2 (08:45→20:05)
[2023-03-16] MEDS: Multivit, Therapeutic 1 TAB PO SCH (08:45)
[2023-03-16] MEDS: Methocarbamol 500 MG TAB PO SCH ×3 (08:45→20:05)
[2023-03-16] MEDS: Amoxicillin/Potassium Clav 500 MG TAB PO SCH ×2 (08:46→20:04)
[2023-03-16] MEDS: Lactulose 20 GM (30 mL) UDCUP PO SCH ×2 (08:46→15:19)
[2023-03-16] MEDS: Famotidine 20 MG TAB PO SCH ×2 (08:46→20:06)
[2023-03-16] MEDS ORDERED: Aspirin 81 mg Enteric Coated Tablet PO SCH (09:00)
[2023-03-16 11:31] LABS: Glucose 114 mg/dL (80-115)
[2023-03-16] MEDS ORDERED: Bisacodyl 10 MG SUPP PR SCH (15:00)
[2023-03-16] MEDS: Polyethylene Glycol 3350 17 GM Packet PO SCH ×3 (15:19→20:12)
[2023-03-16 17:43] LABS: Glucose 116 mg/dL (80-115)
[2023-03-16] MEDS: HYDROcodone/Acetaminophen 5/325 mg Tablet PO PRN (18:13)
[2023-03-16] MEDS: Acetaminophen 500 MG TAB PO SCH (20:05)
[2023-03-16] MEDS: Thiamine 100 MG TAB PO SCH (20:05)
[2023-03-16 20:21] VITALS: BP 126/83; TEMP 98.4
== END 2023-03-16 20:48 | DRG 853 ==
LOC: ERS 21:04 → T4-A 22:53
PROVIDERS: ADMIT Student in an Organized Health Care Education/Training Program; ATTEND Hospitalist
PROC: 3E03329 Introduction of Other Anti-infective into Peripheral Vein, Percutaneous Approach (ICD-10-PCS; 2023-03-09)
PROC: 0Y6H0Z3 Detachment at Right Lower Leg, Low, Open Approach (ICD-10-PCS; principal; 2023-03-10)
PROC: 0QBG0ZZ Excision of Right Tibia, Open Approach (ICD-10-PCS; 2023-03-14)
PROC: 0JBN0ZZ Excision of Right Lower Leg Subcutaneous Tissue and Fascia, Open Approach (ICD-10-PCS; 2023-03-14)
DX: A41.9 Sepsis, unspecified organism (principal); A48.0 Gas gangrene; E43 Unspecified severe protein-calorie malnutrition; E87.20 Acidosis, unspecified; I50.32 Chronic diastolic (congestive) heart failure; Z68.1 Body mass index [BMI] 19.9 or less, adult; E87.1 Hypo-osmolality and hyponatremia; M10.9 Gout, unspecified; F17.210 Nicotine dependence, cigarettes, uncomplicated; F10.20 Alcohol dependence, uncomplicated; E87.6 Hypokalemia; K59.00 Constipation, unspecified; Z79.82 Long term (current) use of aspirin; Z79.899 Other long term (current) drug therapy; Z86.711 Personal history of pulmonary embolism
CPT/HCPCS: 36415; 36416; 71045; 74018; 75635; 80053; 80202; 80307; 82550; 82947; 83605; 83735; 84100; 85025; 85610; 85730; 86140; 86850; 86900; 86901; 87040; 87070; 87205; 88307; 90471; 90686; 93005; 96365; 96367; 96375; 97139; G0008; J1100; J1170; J1815; J1885; J2001; J2270; J2272; J2405; J2543; J2704; J3010; J3370; J3370-JW; J3411; J3475; J3480; J3490; J7050; Q9967